=== PATIENT | female | born 1975 | race Caucasian/White ===

== ENCOUNTER 2019-10-29 12:01 | Emergency (ER) | payer MEDICAID ==
[~2019-10-29] VITALS: Ht 165.1 cm; Wt 93.0 kg
--- NOTE | 2019-10-29 12:01 | NUR ---
Patient BRENT [facility] from [facility], transferred to bed 9. RN evaluating patient at bedside.
[2019-10-29 12:04] VITALS: BP 119/67
--- NOTE | 2019-10-29 12:10 | NUR ---
44/F brought in by ambulance from [facility] for evaluation of seizure. EMS reports patient had witnessed seizure by staff lasting approximately 6 minutes described as tonic clonic. When EMS arrived, pt was postictal. Pt arrived to ER caregiver, GCS 15, back to baseline. Pt denies any pain. Patient has hx epilepsy. Pt arrived with oxygen 2L nasal canula, no medications given prior to arrival. Seizure pads in place. Pt placed on vice president diversity, pulse oximetry and blood pressure monitoring. VSS. Caregiver at bedside.
--- NOTE | 2019-10-29 12:34 | NUR ---
Dr. Danielle is evaluating the patient at bedside.
--- NOTE | 2019-10-29 12:59 | NUR ---
TALKED TO NELSON [employer] AT [facility], REPORT GIVEN ABOUT PT BEING DISCHARGE W/ PRESCRIPTION. PER NELSON PT WILL BE STATE GAME WARDEN BY JOSEFINA IN 30 MINS.
--- NOTE | 2019-10-29 13:10 | NUR ---
pt board and care called pt for pickup in 30 minutes
[2019-10-29] MEDS ORDERED: KETOROLAC 30 MG/ML VIAL IVP ONE (13:25)
[2019-10-29 14:02] VITALS: BP 121/85
--- NOTE | 2019-10-29 14:02 | NUR ---
Patient discharged with v/s stable. Written and verbal after care instructions given and explained regarding uti Patient alert, oriented and verbalized understanding of instructions. Wheel Chair Assisted with to shelter. All questions addressed prior to discharge. ID band removed. Patient advised to follow up with PMD. Rx of cipro 500mg/tab given. Patient educated on indication of medication including possible reaction and side effects. Opportunity to ask questions provided and answered.pt accompanied by osman.
== END 2019-10-29 14:02 | disposition home or self-care (01) ==
LOC: MED 12:01
DX: R56.9 Unspecified convulsions (principal); N39.0 Urinary tract infection, site not specified; Z88.1 Allergy status to other antibiotic agents
CPT/HCPCS: 81002; 81025; 87086; 87186; 96374; 99283; J1885